=== PATIENT | female | born 1970 | race Caucasian/White ===

== ENCOUNTER 2024-09-22 13:19 | Observation (INO) ==
--- NOTE | 2024-09-22 14:23 | Emergency Department Note ---
Impression & Plan Neurogenic claudication due to lumbar spinal stenosis ED Provider Note CHIEF COMPLAINT: Back pain, leg numbness and tingling HISTORY OF PRESENT ILLNESS: This 53-year-old female patient presents to the emergency department due to severe back pain and leg numbness/tingling. She describes lumbar back pain with bilateral radiation of numbness and tingling into her legs. The patient states that [place] [facility] [place] states that "it is pinching in her spinal cord." She confirms that she is scheduled for decompression tomorrow with Dr. Valencia here at [facility]. The patient denies bowel or bladder incontinence and groin/genital numbness and tingling. The patient denies chest pain, shortness of breath, nausea, vomiting, diarrhea. The patient describes that this is a chronic issue that has been well-managed through her orthopedic care, but today the pain has been much more severe and is not controlled with her current medication regimen. The patient confirms taking 5 mg oxycodone at 7 AM and another at 8 AM without improvement of her symptoms. Originally upon arrival the patient denies needing any pain control in the emergency room at this point and would prefer to wait to hear from Dr. Valencia who is being consulted. About an hour later the patient states that she would now like something for pain control. History provided by: The patient. REVIEW OF SYSTEMS: A 10 system review of systems was performed with positives and pertinent negatives listed in the history of present illness. All other systems were reviewed and are negative. ALLERGIES: See below MEDICATIONS: See below PHYSICAL EXAM: VITALS: Vitals are noted on the nurse's note and reviewed by myself. GENERAL: This is a 53-year-old female, in no acute distress, minor discomfort due to back pain, nondiaphoretic, well-developed well-nourished. SKIN: The skin was without rashes, erythema, edema, or bruising. There is no tenting of the skin. Capillary refill less than 2 seconds. HEAD: Normocephalic atraumatic. EARS: External auditory canals clear, tympanic membranes pearly shah without erythema or effusion bilaterally. No hemotympanum. Negative haywood sign EYES: Pupils equal round and reactive to light and accommodation. Conjunctivae without injection, sclerae without icterus. Extraocular movements intact. NOSE: Patent, turbinates without inflammation or discharge. No sinus tenderness. MOUTH: Mucous membranes moist. Tonsils are not enlarged. Pharynx without erythema or exudate. Uvula midline. Airway patent. Tongue does not deviate. NECK: Supple without nuchal rigidity. No lymphadenopathy. Cervical spine is nontender. No JVD. HEART: Regular rate and rhythm without murmurs gallops or rubs. LUNGS: Clear to auscultation bilaterally without wheezes, rales or rhonchi. No retractions or accessory muscle use. ABDOMEN: Positive bowel sounds x 4. Soft, nontender, without masses or organomegaly. Downs sign negative. No guarding or rebound tenderness. MUSCULOSKELETAL: No muscle atrophy, erythema, or edema noted. Full range of motion without joint tenderness in all extremities. Lumbar back pain with palpation and range of motion. Normal gait. Strength 5/5 throughout. NEURO: Patient was alert and oriented to person place and time. Normal sensation to light and sharp touch. Deep tendon reflexes 2+ throughout. No focal neurological deficits. EMERGENCY DEPARTMENT COURSE: I attest that I have personally reviewed the patient medication list. I attest that I have reviewed the patient's blood pressure and it was found to be 111/53. In the evaluation and treatment of this patient the following differential diagnoses were considered DDX: Differential diagnosis includes cauda equina syndrome, cord compression, disc herniation, muscle spasm, lumbar strain, epidural abscess, malignancy, transverse myelitis, urinary tract infection, colitis, diverticulitis, kidney stone, among others. MEDICAL DECISION MAKING: The patient is a 53-year-old female who presents to the emergency department due to severe back pain and leg numbness and tingling. The patient states that she follows up with [place]. Valencia [place] [facility] [place] is scheduled for a decompression tomorrow. I am currently unable to see the patient's notes and imaging [place] [facility] [place] so I called to consult with Dr. Valencia. While awaiting the consult routine blood work and urinalysis were ordered. Patient's labs were unremarkable. White count was slightly elevated at 11.47, alkaline phosphatase was slightly elevated at 125, and urinalysis was clear showing trace blood and 1+ leukocyte esterase. After reaching out to Dr. Valencia an order for an MRI was placed and admission of the patient was decided by them. I educated the patient on this decision and she was happy to stay. Patient was tearful when she was telling me about the history of her chronic back pain and hopes that the procedure can provide her some relief tomorrow. She will stay overnight for pain management and monitoring prior to procedure. It was a pleasure to be part of Vera's care team today. The chart was completed utilizing [email or web address] Speech voice recognition software. Grammatical errors, random word insertions, pronoun errors, and incomplete sentences are an occasional consequence of this system due to software limitations, ambient noise, and hardware issues. Any formal questions or concerns about the content, text, or information contained within the body of this dictation should be directly addressed to the provider for clarification. Past Med/Surg History Problem List (Updated 09/22/24 @ 17:19 by Maria Del Rosario Beach PA-C) Neurogenic claudication due to lumbar spinal stenosis (Acute) Medical History Carotid stenosis Imaging done by [employer] sheriff detective and patient states "said nothing to worry about, that it was normal for my age" Chronic sinusitis Hx of fracture of patella first part of july 2024 from a fall d/t her back pain and leg numbness. [facility] patient still in a brace and has a f/u 09/17/24. healing well per patient. Chronic back pain Lumbar radiculopathy + LE neuropathy Poor historian Hyperlipidemia GERD (gastroesophageal reflux disease) Anxiety "Severe" Hypertension Fibromyalgia History of staph infection States "carries in her skin" and "gets infection 50% of the time after all surgeries, requiring admission for IV abx" - states it is "not MRSA" No issues in past 8+ (prior to 2016) years per patient Surgical History History of open reduction and internal fixation (ORIF) procedure (08/01/24) [facility] S/P epidural steroid injection multiple Hx of tubal ligation (2002) Hx of partial thyroidectomy (2020) left - benign growth removal Hx of shoulder surgery right x1 - 2014 left x6- 2010 History of ankle surgery (2008) x5 left (4 surgeries due to infection) Hx of foot surgery (2008) left Family History (Updated 09/16/24 @ 10:50 by Lidya Tony RN) Other No family history of adverse response to anesthesia Social History Smoking Status: Never smoker Tobacco Type: Cigarettes Cigarettes Per Day: 1 PPD; Second Hand Exposure: No; Do You Dip or Chew Tobacco: No; Hx Alcohol Use: No Hx Substance Use: No Preferred Language: Portuguese Communication Ability: Effective 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 Beliefs That Will Affect Care: None Current Living Situation: Family Feels Safe at Home: Yes Assistive Devices: Brace/Splint/Immobilizer, Contacts, Crutches, Denture - Upper and Denture - Lower Allergies Allergies Allergy/AdvReac Type Severity Reaction Status Date / Time morphine Allergy Mild Itching Verified 09/22/24 15:47 oyster extract Allergy Mild Unknown Verified 09/22/24 15:47 bee venom protein (honey bee) Allergy Unknown Unknown Verified 09/22/24 15:47 Penicillins AdvReac Vomiting Unverified 09/22/24 15:47 Home Meds Home Medications Medication Instructions Recorded Confirmed aspirin 81 mg capsule 0 mg PO QAM 04/30/24 09/22/24 baclofen 5 mg tablet 5 mg PO TID 04/30/24 09/22/24 duloxetine 60 mg capsule,delayed 60 mg PO QAM 04/30/24 09/22/24 release lisinopril 10 mg tablet 10 mg PO QAM 04/30/24 09/22/24 omeprazole 20 mg capsule,delayed 20 mg PO Q2D 04/30/24 09/22/24 release pregabalin 150 mg capsule 150 mg PO TID 04/30/24 09/22/24 sulindac 150 mg tablet 0 mg PO BID 04/30/24 09/22/24 atorvastatin 40 mg tablet 40 mg PO QAM 09/16/24 09/22/24 multivitamin with minerals-folic 1 tab PO QAM 09/16/24 09/22/24 acid 200 mcg chewable tablet (Women's Multivitamin Gummies) oxycodone 5 mg tablet 5 mg PO QID PRN Pain 09/16/24 09/22/24 trazodone 50 mg tablet 75 mg PO HS PRN Sleep 09/16/24 09/22/24 Results & Data (ED) Vital Signs Vital Signs - 24 hr 09/22/24 13:29 09/22/24 15:27 09/22/24 15:46 Temperature 36.5 C Temperature Source Temporal Artery Scan Pulse Rate 79 75 Pulse Rate [Apical] 65 Pulse Strength [Apical] Normal Respiratory Rate 20 18 Respiratory Effort / Characteristics Non-Labored Spontaneous Non-Labored Spontaneous Respiratory Depth Normal Normal Respiratory Pattern Regular Blood Pressure 112/71 Blood Pressure [Right Arm] 111/53 L Blood Pressure Mean 84 Blood Pressure Mean [Right Arm] 72 Pulse Oximetry 97 98 Oxygen Delivery Method Room Air Room Air Sepsis Recent Fever Within 48 Hours No Sepsis New/Unexplained Change in Mental Status No Sepsis Action Taken by Nursing No Action Required Laboratory Data 09/22/24 14:50 09/22/24 14:50 Lab Results 09/22/24 Range/Units 14:50 WBC 11.47 H (4.8-10.8) K/ul RBC 5.03 (4.20-5.40) M/uL Hgb 14.7 (12.0-16.0) g/dl Hct 43.9 (37.0-47.0) % MCV 87.3 (80.0-100.0) fL MCH 29.2 (25.0-34.0) pg MCHC 33.5 (32.0-36.0) g/dL RDW Std Deviation 41.4 (36.4-46.3) fL RDW Coeff of Mike 13.1 (11.5-14.5) % Plt Count 353 (130-400) K/uL MPV 10.4 (9.4-12.4) fL Immature Gran % (Auto) 0.3 % Neut % (Auto) 72.8 % Lymph % (Auto) 21.5 % Wharton % (Auto) 3.1 % Eos % (Auto) 1.8 % Baso % (Auto) 0.5 % Neut # (Auto) 8.34 H (1.40-6.50) K/uL Lymph # (Auto) 2.47 (1.20-3.40) K/uL Wharton # (Auto) 0.36 (0.11-0.59) K/uL Eos # (Auto) 0.21 (0.00-0.50) K/uL Baso # (Auto) 0.06 (0.00-0.20) K/uL Immature Gran # (Auto) 0.03 (0.01-0.20) K/uL Sodium 138 (136-145) mmol/L Potassium 3.9 (3.5-5.1) mmol/L Chloride 101 (98-107) mmol/L Carbon Dioxide 32 (21-32) mmol/L Anion Gap 5 (3-11) BUN 13 (6-23) mg/dl Creatinine 0.82 (0.6-1.2) mg/dl Est Cr Clr Drug Dosing 94.9 ml/min eGFR 86.55 BUN/Creatinine Ratio 15.9 (10-20) Glucose 80 (70-99(Fasting)) mg/dl Calcium 9.8 (8.6-10.3) mg/dl Total Bilirubin 0.5 (0.2-1.0) mg/dl AST 21 (13-39) U/L ALT 29 (7-52) U/L Alkaline Phosphatase 125 H (34-104) U/L Total Protein 7.8 (6.0-8.3) gm/dl Albumin 5.0 (3.4-5.0) gm/dl Globulin 2.8 (2.5-4.0) gm/dl Albumin/Globulin Ratio 1.8 (0.9-2) Urine Color Yellow Urine Appearance Clear (Clear) Urine pH 6.0 (4.5-7.5) Ur Specific [place] 1.011 (1.000-1.030) Urine Protein Negative (Negative) Urine Glucose (UA) Negative (Negative) Urine Ketones Negative (Negative) Urine Blood Trace H (Negative) Urine Nitrite Negative (Negative) Urine Bilirubin Negative (Negative) Urine Urobilinogen Negative (Negative) Ur Leukocyte Esterase 1+ H (Negative) Urine WBC (Auto) 0-5 (0-5) /hpf Urine RBC (Auto) 0-2 (0-2) /hpf U Hyaline Cast (Auto) 0-2 (0-2) /lpf U Epithel Cells (Auto) 0-2 (0-2) /hpf Urine Bacteria (Auto) None Seen (None Seen) Administered Medications Discontinued Medications Fentanyl Citrate (Fentanyl Citrate Pf 100 Mcg/2 Ml Vial) 50 mcg IV NOW STA Stop: 09/22/24 15:06 Last Admin: 09/22/24 15:25 Dose: 50 mcg Documented By: GGG Ketorolac Tromethamine (Ketorolac Tromethamine 15 Mg/Ml Vial) 15 mg IV NOW STA Stop: 09/22/24 15:06 Last Admin: 09/22/24 15:23 Dose: 15 mg Documented By: IRA Discharge Plan Visit Data Chief Complaint: Back Injury/Pain Stated Complaint: SEVERE BACK PAIN ED Provider: Ngozi Sal ED Midlevel Provider: Maria Del Rosario Beach Discharge Problem: Neurogenic claudication due to lumbar spinal stenosis Patient Disposition: Admitted As Inpatient Discharge Instructions Interventions: ED Discharge Assessment Last Done: 09/22/24 16:31 Prescriptions Prescriptions: No Action sulindac 150 mg Tablet 0 mg PO BID Rx Instructions: USUALLY ON 150 MG BUT IS ON HOLD FOR SURGERY omeprazole 20 mg Capsule,Delayed Release(Dr/Ec) 20 mg PO Q2D duloxetine 60 mg Capsule,Delayed Release(Dr/Ec) 60 mg PO QAM pregabalin 150 mg Capsule 150 mg PO TID baclofen 5 mg Tablet 5 mg PO TID aspirin 81 mg Capsule 0 mg PO QAM Rx Instructions: 81MG ON HOLD FOR SURGERY 09/22 lisinopril 10 mg Tablet 10 mg PO QAM atorvastatin 40 mg Tablet 40 mg PO QAM trazodone 50 mg Tablet 75 mg PO HS PRN (Reason: Sleep) oxycodone 5 mg Tablet 5 mg PO QID PRN (Reason: Pain) multivit with min-folic acid [Women's Multivitamin Gummies] 200 mcg Tablet,Chewable 1 tab PO QAM
[2024-09-22 15:06] LABS: Basophils # (auto) 0.06 K/uL (0.00-0.20); Basophils % (auto) 0.5 %; Eosinophils # (auto) 0.21 K/uL (0.00-0.50); Eosinophils % (auto) 1.8 %; Hematocrit (blood only) 43.9 % (37.0-47.0); Hemoglobin 14.7 g/dl (12.0-16.0); Immature Granulocytes # (auto) 0.03 K/uL (0.01-0.20); Immature Granulocytes % (auto) 0.3 %; Lymphocytes # (auto) 2.47 K/uL (1.20-3.40); Lymphocytes % (auto) 21.5 %; Mean Corpuscular Hemoglobin 29.2 pg (25.0-34.0); Mean Corpuscular Hgb Conc 33.5 g/dL (32.0-36.0); Mean Corpuscular Volume 87.3 fL (80.0-100.0); Mean Platelet Volume 10.4 fL (9.4-12.4); Monocytes # (auto) 0.36 K/uL (0.11-0.59); Monocytes % (auto) 3.1 %; Neutrophils # (auto) 8.34 K/uL (1.40-6.50); Neutrophils % (auto) 72.8 %; Platelet Count 353 K/uL (130-400); RDW Coefficient of Variation 13.1 % (11.5-14.5); RDW Standard Deviation 41.4 fL (36.4-46.3); Red Blood Count 5.03 M/uL (4.20-5.40); White Blood Count 11.47 K/ul (4.8-10.8)
[2024-09-22 15:11] LABS: Appearance Urine Clear (Clear); Bacteria Urine Automated None Seen (None Seen); Bilirubin Urine Negative (Negative); Blood Urine Trace (Negative); Cast Urine Automated 0-2 /lpf (0-2); Color Urine Yellow; Epithelial Cell Urine Auto 0-2 /hpf (0-2); Glucose Urine UA Negative (Negative); Ketones Urine Negative (Negative); Leukocyte Esterase Urine 1+ (Negative); Nitrite Urine Negative (Negative); Protein Urine Negative (Negative); RBC Urine Automated 0-2 /hpf (0-2); Specific Gravity Urine 1.011 (1.000-1.030); Urobilinogen Urine Negative (Negative); WBC Urine Automated 0-5 /hpf (0-5)
--- NOTE | 2024-09-22 15:19 | History & Physical Report ---
Date of Service September 22, 2024 Assessment & Plan (1) Neurogenic claudication due to lumbar spinal stenosis: Plan: Assessment lumbar spinal stenosis with progressive neurologic deficit including loss of urinary control. Plan at this time we will admit the patient to the hospital. I have her undergo an urgent MRI lumbar spine. She does have known spinal stenosis L3-L4 L4-L5. Most likely have to address these areas on an emergent basis pending MRI results. History of Present Illness Chief Complaint: Bilateral leg pain weakness and urinary incontinence Primary Care Provider: Heber Stone MD This is a 53-year-old female well-known to me the presents the emergency room today with steady decline in status of the past few days. She notes bilateral leg pain weakness to the point that she falls. She is noted loss of urinary control. Pain medications provide little to no relief. Allergies Allergy/AdvReac Type Severity Reaction Status Date / Time morphine Allergy Mild Itching Verified 09/16/24 10:43 oyster extract Allergy Mild Unknown Verified 09/16/24 10:43 bee venom protein (honey bee) Allergy Unknown Unknown Verified 09/16/24 10:43 Home Medications Medication Instructions Recorded Confirmed Type aspirin 81 mg capsule 81 mg PO QAM 04/30/24 09/16/24 History baclofen 5 mg tablet 5 mg PO TID 04/30/24 09/16/24 History duloxetine 60 mg capsule,delayed 60 mg PO QAM 04/30/24 09/16/24 History release lisinopril 10 mg tablet 10 mg PO QAM 04/30/24 09/16/24 History omeprazole 20 mg capsule,delayed 20 mg PO Q2D 04/30/24 09/16/24 History release pregabalin 150 mg capsule 150 mg PO TID 04/30/24 09/16/24 History sulindac 150 mg tablet 150 mg PO BID 04/30/24 09/16/24 History atorvastatin 40 mg tablet 40 mg PO QAM 09/16/24 09/16/24 History multivitamin with minerals-folic 1 tab PO QAM 09/16/24 09/16/24 History acid 200 mcg chewable tablet (Women's Multivitamin Gummies) oxycodone 5 mg tablet 5 mg PO QID PRN Pain 09/16/24 09/16/24 History trazodone 50 mg tablet 75 mg PO HS PRN Sleep 09/16/24 09/16/24 History Past Med/Surg History Problem List (Updated 09/22/24 @ 15:18 by Amrit Valencia DO) Neurogenic claudication due to lumbar spinal stenosis Medical History Carotid stenosis Imaging done by [place] conveyor technician and patient states "said nothing to worry about, that it was normal for my age" Chronic sinusitis Hx of fracture of patella first part of july 2024 from a fall d/t her back pain and leg numbness. [facility] patient still in a brace and has a f/u 09/17/24. healing well per patient. Chronic back pain Lumbar radiculopathy + LE neuropathy Poor historian Hyperlipidemia GERD (gastroesophageal reflux disease) Anxiety "Severe" Hypertension Fibromyalgia History of staph infection States "carries in her skin" and "gets infection 50% of the time after all surgeries, requiring admission for IV abx" - states it is "not MRSA" No issues in past 8+ (prior to 2016) years per patient Surgical History History of open reduction and internal fixation (ORIF) procedure (08/01/24) [facility] S/P epidural steroid injection multiple Hx of tubal ligation (2002) Hx of partial thyroidectomy (2020) left - benign growth removal Hx of shoulder surgery right x1 - 2014 left x6- 2010 History of ankle surgery (2008) x5 left (4 surgeries due to infection) Hx of foot surgery (2008) left Family History (Updated 09/16/24 @ 10:50 by Lidya Tony RN) Other No family history of adverse response to anesthesia Social History Smoking Status: Never smoker Tobacco Type: Cigarettes Cigarettes Per Day: 1 PPD; Second Hand Exposure: No; Do You Dip or Chew Tobacco: No; Hx Alcohol Use: No Hx Substance Use: No Preferred Language: Guamanian Communication Ability: Effective Burial Agent Required: No Beliefs That Will Affect Care: None Current Living Situation: Family Feels Safe at Home: Yes Assistive Devices: Brace/Splint/Immobilizer, Contacts, Crutches, Denture - Upper and Denture - Lower Physical Exam Physical Exam: On exam she is currently in bed. She has 4/5 plantarflexion dorsiflexion. She is a brace on the left knee from a patella fracture that she is recovering from. She does have decreased sensation throughout the perineal area and bilateral lower extremities. Deep to reflexes are absent. Results & Data Results & Data Vital Signs (Past 12 Hours) Vital Signs Temp Pulse Resp BP Pulse Ox O2 Del Method 09/22/24 13:29 36.5 C 79 20 112/71 97 Room Air Code Status & VTE Plan VTE Prophylaxis Plan VTE Prophylaxis will be ordered: Yes
[2024-09-22 15:23] LABS: Albumin Globulin Ratio 1.8 (0.9-2); BUN Creatinine Ratio 15.9 (10-20); Bilirubin,Total 0.5 mg/dl (0.2-1.0); Calcium 9.8 mg/dl (8.6-10.3); Creatinine Clr Calc Pharmacy 94.9 ml/min; Globulin 2.8 gm/dl (2.5-4.0); Potassium 3.9 mmol/L (3.5-5.1); Total Protein 7.8 gm/dl (6.0-8.3)
[2024-09-22] MEDS: KETOROLAC TROMETHAMINE 15 MG/ML VIAL IV STA (15:23)
[2024-09-22] MEDS: fentaNYL citrate PF 100 MCG/2 ML VIAL IV STA (15:25)
[2024-09-22] MEDS ORDERED: ONDANSETRON 4 MG OD TAB PO PRN (17:23)
[2024-09-22] MEDS ORDERED: NALOXONE HCL 0.4 MG/1 ML VIAL/CARP IV PRN (17:23)
[2024-09-22] MEDS ORDERED: METOCLOPRAMIDE HCL INJ 5 MG/ML 2 ML VIAL IV PRN (17:23)
[2024-09-22] MEDS ORDERED: traMADol HCL 50 MG TABLET PO PRN (17:23)
[2024-09-22] MEDS ORDERED: LORazepam 0.5 MG TAB PO PRN (17:23)
[2024-09-22] MEDS ORDERED: ONDANSETRON INJ 2 MG/ML 2 ML VIAL IV PRN (17:23)
[2024-09-22] MEDS ORDERED: traZODone HCL 50 MG TAB PO PRN (17:23)
[2024-09-22] MEDS ORDERED: PROMETHAZINE 12.5 MG/50.5 ML BAG IV PRN (17:23)
[2024-09-22] MEDS ORDERED: HYDROmorphone INJ 1 MG/ML SYRINGE IV PRN (17:23)
[2024-09-22] MEDS ORDERED: LORazepam 2 MG/1 ML VIAL IV PRN (17:23)
[2024-09-22] MEDS ORDERED: ACETAMINOPHEN 1,000 MG/100 ML VIAL IV PRN (17:23)
[2024-09-22] MEDS ORDERED: HYDROmorphone INJ 0.5 MG/0.5 ML SYR IV PRN (17:23)
[2024-09-22] MEDS: PANTOprazole 40 MG TAB PO SCH (18:20)
--- NOTE | 2024-09-22 19:38 | Magnetic Resonance Report ---
EXAM: MR lumbar spine wo con CLINICAL HISTORY: PT STATES LOW BACK PAIN. BILATERAL LEG NUMBNESS. THE RIGHT IS WORSE THAN THE LEFT LEG. WORSENED IN LAST YEAR. MORE FREQUENT PAIN AND NUMBNESS. NO INJURY. NO PRIOR SURGERY. NO HX OF CANCER. TECHNIQUE: Different pulse sequences were performed in different planes for the lumbar spine without contrast. Images were sent through PACs for diagnostic interpretation. COMPARISON: None. FINDINGS: Levoconvex degenerative lumbar scoliosis. The Balderrama Lippmann's angle measures 15.6. The scanned intervertebral discs show variable degrees of degeneration, denoted by low signal intensity on T2 WI and a relative reduction in their heights. Marginal osteophytes are seen.Multiple radial, concentric, and transverse annular fissures are seen.Multiple Schmorl's nodes are seen at the vertebral end plates. Modic I and II marrow changes are seen, but no other remarkable marrow changes are present. An associated wide zone of bone marrow edema is seen at the L4 vertebral body, suggesting aseptic/Septic spondylitis. Detailed clinical and laboratory correlation and follow-up are recommended as appropriate. Soft tissue edema is seen opposite the lumbar and sacral vertebrae, suggesting orthostatic edema vs. soft tissue contusion. Degenerative spondylolisthesis is seen at the L3-L4 level, measuring 4 mm, and at the L4-L5 level measuring 4.5 mm. Maintained vertebral heights with intact vertebral bodies and neural arches. Level by Level analysis: T10-T11: There is a 2.8 mm annular bulge indenting the thecal sac, compromising subarticular recesses. There is mild central canal stenosis and mild bilateral neural foraminal stenosis with impingement of the emerging nerve roots. Buckled ligamenta flava augment effects. T 11-T12: There is a 3.2 mm annular bulge indenting the thecal sac, compromising the subarticular recesses. There is mild central canal stenosis and mild bilateral neural foraminal stenosis with impingement of the emerging nerve roots. Buckled ligamenta flava augment effects. T12-L1: There is a 4 mm annular bulge indenting the thecal sac, compromising the subarticular recesses. There is mild central canal stenosis and mild bilateral neural foraminal stenosis more on the left side with impingement of the emerging nerve roots. Buckled ligamenta flava and arthropathic facet joints augment effects. L1-L2: There is a 2.6 mm annular bulge and a 4.6 mm left foraminal herniation indenting the thecal sac, compromising the subarticular recesses more on the left side with moderate left and mild right neural foraminal stenosis with impingement of the emerging nerve roots. Buckled ligamenta flava and arthropathic facet joints augment effects. L2-L3: There are 4.5 mm subarticular herniations compromising subarticular recesses and neural foramina with impingement of the emerging nerve roots. L3-L4: There is a 4 mm degenerative spondylolisthesis and a 4 mm cranial buckling of the intervening disc indenting the thecal sac, compromising the subarticular recesses. There is moderate to severe central canal stenosis and severe right and moderate left neural foraminal stenosis with impingement of the emerging nerve roots. Proximal Engorgement of the epidural veins is seen, representing the consequences of severe tight spinal canal stenosis (Spinal varices). There is a foreshortening of the midsagittal AP dimension of the spinal canal (closed arch type of spondylolisthesis) (diagnostic hallmark). L4-L5: There is a 4.5 mm degenerative spondylolisthesis and a 4.5 mm cranial buckling of the intervening disc indenting the thecal sac, compromising the subarticular recesses. There is moderate to severe central canal stenosis and severe right and moderate left neural foraminal stenosis with impingement of the emerging nerve roots. There is a foreshortening of the midsagittal AP dimension of the spinal canal (closed arch type of spondylolisthesis) (diagnostic hallmark). L5-S1: There is 2.4 mm annular bulge indenting the anterior epidural fat compromising the subarticular recesses and neural foramina with impingement of the emerging nerve roots. Buckled ligamenta flava and arthropathic facet joints augment effects. The lower dorsal spinal cord, conus medullaris, and cauda equina nerve roots are unremarkable. Paravertebral soft tissue is unremarkable. No developmental canal stenosis. IMPRESSION: 1. spondylodegenerative lumbar disc disease. 2. Levoconvex degenerative lumbar scoliosis. The Balderrama Lippmann's angle measures 15.6. 3. Multiple Schmorl's nodes. 4. Multiple annular fissures. 5. Soft tissue edema is seen opposite the lumbar and sacral vertebrae, suggesting orthostatic edema vs. soft tissue contusion. 6. Degenerative spondylolisthesis is seen at the L3-L4 level, measuring 4 mm, and at the L4-L5 level measuring 4.5 mm. 7. Modic I and II marrow changes. 8. An associating wide zone of bone marrow edema is seen at the [id number] body, suggesting aseptic/Septic spondylitis. Detailed clinical, laboratory correlation and follow-up are recommended as appropriate. 9. Soft tissue edema is seen opposite the lumbar and sacral vertebrae, suggesting orthostatic edema vs. soft tissue contusion. 10. T10-T11: There is a 2.8 mm annular bulge. 11. T 11-T12: There is a 3.2 mm annular bulge. 12. T12-L1: There is a 4 mm annular bulge. 13. L1-L2: There is a 2.6 mm annular bulge and a 4.6 mm left foraminal herniation. 14. L2-L3: There are 4.5 mm subarticular herniations compromising subarticular recesses and neural foramina with impingement of the emerging nerve roots. 15. L3-L4: There is a 4 mm degenerative spondylolisthesis and a 4 mm cranial buckling of the intervening disc. 16. L4-L5: There is a 4.5 mm degenerative spondylolisthesis and a 4.5 mm cranial buckling of the intervening disc. 17. L5-S1: There is a 2.4 mm annular bulge. 18. Multilevel lumbar disc pathologies at the T10-T11 through the L5-S1 levels with effects exerted upon the central spinal canal, subarticular recesses, and neural foramina with impingement of the emerging nerve roots. Degenerative spondylolisthesis buckled ligamenta flava and arthropathic facet joints augment effects. 19. The reported findings explain the current clinical status. Electronically signed by Armando Arenas 09-22-2024 7:38 PM
[2024-09-22] MEDS: PREGABALIN 150 MG CAP PO SCH (20:54)
[2024-09-22] MEDS: oxyCODONE HCL IR 5 MG TAB (IMMEDIATE RELEASE) PO PRN (21:14)
[2024-09-23] MEDS: ACETAMINOPHEN 500 MG TAB PO PRN (07:58)
[2024-09-23] MEDS: DULoxetine HCL 60 MG CAP PO SCH (08:00)
[2024-09-23] MEDS: lisinopril 10 MG TAB PO SCH (08:00)
[2024-09-23] MEDS: ATORVASTATIN 40 MG TAB PO SCH (08:00)
--- NOTE | 2024-09-23 08:55 | History & Physical Bridge Note ---
Date of Service September 23, 2024 History & Physical Bridge Note I have examined the patient, reviewed the History & Physical and in the interval since the performance of the History & Physical I have noted the following changes of clinical significance: no changes noted Updated MRI confirms both severe spinal stenosis with foraminal stenosis and instability L3-L4 L4-L5. In light of the patient's progressive neurologic deficit loss of urinary control and recommended emergent decompression and fusion L3-L4 L4-L5.
[2024-09-23] MEDS ORDERED: LIDOCAINE 2% 2 ML VIAL/AMP(20MG/ML) INFIL ONE (10:20)
[2024-09-23] MEDS ORDERED: ROCURONIUM BROMIDE 10 MG/ML 5 ML VIAL IV ONE (10:20)
[2024-09-23] MEDS ORDERED: DEXAMETHASONE SOD INJ 4 MG/ML VIAL ONE (10:20)
[2024-09-23] MEDS ORDERED: PROPOFOL IV EMULSION 10 MG/ML 20 ML VIAL IV ONE (10:20)
[2024-09-23] MEDS ORDERED: fentaNYL citrate PF 100 MCG/2 ML VIAL ONE ×2 (10:20→13:31)
[2024-09-23] MEDS ORDERED: ONDANSETRON INJ 2 MG/ML 2 ML VIAL ONE (10:20)
[2024-09-23] MEDS ORDERED: MIDAZOLAM HCL 1 MG/ML 2ML VIAL ONE (10:21)
[2024-09-23] MEDS: LR 15ML/HR IV SCH (10:41)
[2024-09-23] MEDS ORDERED: Nursing to Pharmacy Communication SCH (10:45)
[2024-09-23] MEDS: ceFAZolin 2000MG 2,000 MG/15 ML SYR IV SCH ×2 (11:45→22:38)
[2024-09-23] MEDS ORDERED: KETAMINE HCL 10MG/ML SYR ONE (12:12)
[2024-09-23] MEDS: BUPIVACAINE/EPINEPHRINE 0.25% 1:200,000 30 ML VIAL ONE (12:13)
[2024-09-23] MEDS ORDERED: ePHEDrine sulfate 50 MG/ML AMP ONE (12:14)
[2024-09-23] MEDS ORDERED: GLYCOPYRROLATE 0.2 MG/ML VIAL ONE (12:34)
[2024-09-23] MEDS: ceFAZolin 330 MG/ML 1 GM VIAL ONE (12:42)
[2024-09-23] MEDS ORDERED: SUGAMMADEX SODIUM 200 MG/2 ML VIAL IV ONE ×2 (13:15→14:13)
[2024-09-23] MEDS: FLOSEAL HEMOSTATIC MATRIX 10ML TOP ONE (13:51)
--- NOTE | 2024-09-23 14:00 | Operative Report ---
Post Operative Report Pre & Post Diagnosis Operation Date: 09/23/24 11:55 Pre-Op Diagnosis: #1 cauda equina syndrome. #2 spondylolisthesis L3-L4 L4-5. #3 spinal stenosis with neurogenic claudication. #4 lumbar spondylosis with radiculopathy Post-Op Diagnosis: Same I identified the patient and participated in the time-out.: Yes Procedure Operation Date: 09/23/24 11:55 Actual Procedures #1 lumbar compression with bilateral medial facetectomies and foraminotomies L2- L3, L3-L4 and L4-5. #2 posterior spinal fusion L3-L5. #3 placed posterior instrumentation L3-L4 L4-5. #4 interbody fusion L3-L4 L4-5. #5 placement Spira 12 x 26 mm x 2 at L3-L4 and 13 x 26 mm x 2 at L4-5. #6 placement locally harvested morselized autograft posterior gutters. #7 placement infuse collagen sponge, with Koros in the posterior lateral gutters and os design interbody space. #8 application of versa wrap of the exposed dura. Surgeon Amrit Valencia, DO Bootmaker Hand Pooja Shook Estimated Blood Loss 250 Findings See Below The patient is 5 foot 6 weighing over 91 kg with a BMI in excess of 32. The patient's body was did contribute to significant technical difficulty with positioning exposure and the procedure itself adding at least 50% increased to the operative time. Specimens None Indications This is a 53-year-old female presents with marked decline in status loss of urinary control severe bilateral leg pain and numbness and here for emergent decompression fusion. Description of Procedure Patient was met with identified informed consent obtained. Patient was then taken to the operative suite underwent and patient placed in a prone position on the Kayode table on top of the Tj frame. All bony promises well-padded eyes inspected to ensure no external pressure placed upon them. This point the lumbar spine was prepped and draped in normal sterile fashion. Sharp dissection with the assistance of Bovie cautery was performed down to and exposing the lamina transverse processes of L3-L4-L5 bilaterally. From a caudal cephalad fashion complete laminectomy of L4 was performed including bilateral medial facetectomies and foraminotomies addressing severe central lateral recess and foraminal stenosis. This was followed by complete laminectomy of L3 again addressing severe central lateral recess and foraminal stenosis. I also performed partial laminectomy of L2 with bilateral medial facetectomies addressing all subarticular disease. Pedicle screws were then placed at L3 L4-5 bilaterally with assistance of fluoroscopy and the properly sized ren placed. By way of transfer approach on the right discectomy of L4-5 was performed endplates grade 2 subcortical bleeding bone and a 13 x 26 mm Spira cage filled with os design bone graft tapped in position. Then proceeded to the transforaminal region at L4-5 on the left. Again discectomy performed endplates guided to subcortical bleeding bone and a second 13 x 26 mm Spira cage filled with os designed tapped into position. I then proceeded at L3-L4 and by way of transforaminal approach a left discectomy was performed endplates guided to subcortical bleeding bone and a 12 x 26 mm Spira cage filled os designed tapped in position. Then proceeded to the right transforaminal region at L3-L4. Again discectomy performed endplates guided to subcortical and bone and a second 12 x 26 mm spiral cage filled with os design tapped into position. The rods are then compressed locked in final position bilaterally. The transverse processes of L3 L4-5 burred to subcortical bleeding bone. Infuse collagen sponge combined with Koros and local autograft placed in the posterior gutters. 15 round CA drain inserted. Versa wrap placed over the exposed dura. Incision was then closed with 1 Vicryl the fascia 2-0 Vicryl subcutaneously and 4 Monocryl for final skin closure. Steri-Strips sterile dressing placed. Patient waken taken PACU stable condition. Please note spinal cord monitoring was utilized for the procedure no changes noted. Lastly Pooja Shook was present at the entire procedure and while the patient positioning complex portions of the surgery and final skin closure. Im ordering 20 grams of Triple [place] Collagen Powder ([id number]) to treat an incision wound that was caused by a spine procedure. The incision is approximately 2 cm(W) x 4 cm(L) into the joint (D) in size and is a full thickness wound. Triple [place] collagen comes in 1 gram packets so 20 packets were ordered. Given the size of the wound, with light to moderate exudate I chose to order a 20 day supply. The patient will be provided instructions for proper application of the collagen wound kit. The patient will be asked to apply the collagen powder daily and then cover it with sterile dressings dispensed. Collagen was selected as I expect the collagen to attract monocytes and fibroblasts, act as a sacrificial substrate for MMPs, and ultimately proved a matrix for tissue and vessel growth. The collagen will act as a primary dressing in this scenario. It is medically necessary for proper healing of these wounds to improve bioavailability and contact with each wound surface, this is also to help prevent infection of wounds and promote healing ultimately leading to a better healing outcome and limit the risk of infection. I attest to the content of the Intraoperative Record and any orders documented therein. Any exceptions are noted below.
[2024-09-23] MEDS ORDERED: ATROPINE SULFATE 0.1 MG/ML 10ML SYR IV PRN (14:46)
[2024-09-23] MEDS ORDERED: ONDANSETRON INJ 2 MG/ML 2 ML VIAL IV PRN ×2 (14:46→18:23)
[2024-09-23] MEDS ORDERED: ePHEDrine sulfate 50 MG/ML AMP IV PRN (14:46)
[2024-09-23] MEDS: fentaNYL citrate PF 100 MCG/2 ML VIAL IV PRN (14:50)
[2024-09-23] MEDS: HYDROmorphone INJ 1 MG/ML SYRINGE IV PRN ×2 (15:06→21:56)
[2024-09-23] MEDS: ASPIRIN 81 MG ECTAB PO SCH (15:25)
[2024-09-23] MEDS ORDERED: PHENYLEPHRINE 100MCG/ML 5ML SYR ONE (16:12)
[2024-09-23 17:23] LABS: Hematocrit (blood only) 34.7 % (37.0-47.0); Hemoglobin 11.6 g/dl (12.0-16.0)
--- NOTE | 2024-09-23 18:13 | Anesthesiology Progress Note ---
Date of Service September 23, 2024 Anesthesia Post Procedure Vital Signs Vital Signs: Temp Pulse Pulse Resp BP Pulse Ox O2 Del Method 09/23/24 18:00 84 16 98/58 L 96 Nasal Cannula 09/23/24 17:50 79 16 104/53 L 92 Nasal Cannula 09/23/24 17:40 75 12 96/36 L 95 Nasal Cannula 09/23/24 17:30 74 12 95/45 L 92 Nasal Cannula 09/23/24 17:20 74 12 89/43 L 95 Nasal Cannula 09/23/24 17:10 71 12 92/41 L 92 Nasal Cannula 09/23/24 17:00 76 12 90/48 L 91 Nasal Cannula 09/23/24 16:35 78 15 98/59 L 91 Nasal Cannula 09/23/24 16:25 77 13 96/46 L 91 Nasal Cannula 09/23/24 16:15 72 11 L 109/52 L 92 Nasal Cannula 09/23/24 16:05 77 15 87/41 L 93 Nasal Cannula 09/23/24 15:55 73 9 L 91/40 L 92 Nasal Cannula 09/23/24 15:45 76 13 83/36 L 92 Nasal Cannula 09/23/24 15:35 78 12 78/48 L 92 Nasal Cannula 09/23/24 15:25 77 10 L 80/43 L 91 Nasal Cannula 09/23/24 15:15 85 13 84/48 L 92 Nasal Cannula 09/23/24 15:05 82 16 85/43 L 94 Nasal Cannula 09/23/24 14:55 83 18 88/41 L 93 Nasal Cannula 09/23/24 14:45 36.7 C 78 13 85/47 L 92 Nasal Cannula 09/23/24 14:35 84 13 84/45 L 98 Nasal Cannula 09/23/24 14:25 91 H 14 83/39 L 98 Nasal Cannula 09/23/24 14:19 36.3 C L 91 H 17 105/54 L 98 Oxymask 09/23/24 10:36 36.9 C 67 20 157/56 H 95 Room Air 09/23/24 10:35 78 15 98/59 L 91 Nasal Cannula 09/23/24 07:18 36.4 C L 69 16 170/80 H 93 Room Air 09/22/24 19:45 36.6 C 69 20 117/70 94 Room Air O2 Flow Rate 09/23/24 18:00 3 09/23/24 17:50 3 09/23/24 17:40 3 09/23/24 17:30 3 09/23/24 17:20 3 09/23/24 17:10 3 09/23/24 17:00 3 09/23/24 16:35 2 09/23/24 16:25 2 09/23/24 16:15 2 09/23/24 16:05 2 09/23/24 15:55 2 09/23/24 15:45 2 09/23/24 15:35 2 09/23/24 15:25 2 09/23/24 15:15 2 09/23/24 15:05 2 09/23/24 14:55 2 09/23/24 14:45 2 09/23/24 14:35 2 09/23/24 14:25 2 09/23/24 14:19 10 09/23/24 10:36 09/23/24 10:35 2 09/23/24 07:18 09/22/24 19:45 Pain Intensity Back: Pain Intensity: 4 Transfer of Care Handoff Completed per policy Notes Mental Status: alert / awake / arousable Patient Amnestic to Procedure: Yes Nausea / Vomiting: adequately controlled Pain: adequately controlled Airway Patency, RR, SpO2: stable & adequate BP & HR: stable & adequate Hydration State: stable & adequate Anesthetic Complications: no major complications apparent
[2024-09-23] MEDS: fentaNYL citrate PF 100 MCG/2 ML VIAL ONE (18:22)
[2024-09-23] MEDS ORDERED: ACETAMINOPHEN 1,000 MG/100 ML VIAL IV PRN (18:23)
[2024-09-23] MEDS ORDERED: diphenhydrAMINE Capsule 25 MG CAP PO PRN (18:23)
[2024-09-23] MEDS ORDERED: FAMOTIDINE 20 MG TAB PO PRN (18:23)
[2024-09-23] MEDS ORDERED: ONDANSETRON 4 MG OD TAB PO PRN (18:23)
[2024-09-23] MEDS ORDERED: MAGNESIUM HYDROXIDE SUSP 30 ML UDC PO PRN (18:23)
[2024-09-23] MEDS ORDERED: PROMETHAZINE 12.5 MG/50.5 ML BAG IV PRN (18:23)
[2024-09-23] MEDS ORDERED: DO NOT ADMINISTER FLU VACCINE PRN (18:23)
[2024-09-23] MEDS ORDERED: hydrOXYzine HCl 25 MG TAB PO PRN (18:23)
[2024-09-23] MEDS ORDERED: METOCLOPRAMIDE HCL INJ 5 MG/ML 2 ML VIAL IV PRN (18:23)
[2024-09-23] MEDS ORDERED: NALOXONE HCL 0.4 MG/1 ML VIAL/CARP IV PRN (18:23)
[2024-09-23] MEDS ORDERED: ALUMINUM/MAGNESIUM SUSP 30 ML UDC PO PRN (18:23)
[2024-09-23] MEDS ORDERED: SOD PHOSPHATE/SOD BIPHOSPHATE ENEMA 132 ML BTL PR PRN (18:23)
[2024-09-23] MEDS ORDERED: LORazepam 2 MG/1 ML VIAL IV PRN (18:23)
[2024-09-23] MEDS ORDERED: DO NOT ADMINISTER PNEUMOCOCCAL VACCINE PRN (18:23)
[2024-09-23] MEDS ORDERED: bisacodyL 10 MG SUPP PR PRN (18:23)
[2024-09-23] MEDS: dexAMETHasone 6 MG in SYRINGE 0 ML IV SCH (19:41)
[2024-09-23] MEDS: SULINDAC 150 MG TAB PO SCH (19:58)
[2024-09-23] MEDS: oxyCODONE HCL IR 5 MG TAB (IMMEDIATE RELEASE) PO PRN (19:59)
[2024-09-23] MEDS: SENNA 8.6 MG TAB PO ONE (20:05)
[2024-09-23] MEDS: DOCUSATE SODIUM/SENNA 50/8.6MG TAB PO SCH (22:05)
[2024-09-24] MEDS: LORazepam 0.5 MG TAB PO PRN (02:48)
[2024-09-24 04:31] LABS: Hematocrit (blood only) 32.7 % (37.0-47.0); Mean Corpuscular Hemoglobin 29.8 pg (25.0-34.0); Mean Corpuscular Hgb Conc 33.6 g/dL (32.0-36.0); Mean Corpuscular Volume 88.6 fL (80.0-100.0); Mean Platelet Volume 10.9 fL (9.4-12.4); Platelet Count 290 K/uL (130-400); RDW Coefficient of Variation 13.2 % (11.5-14.5); RDW Standard Deviation 42.9 fL (36.4-46.3); Red Blood Count 3.69 M/uL (4.20-5.40); White Blood Count 15.54 K/ul (4.8-10.8)
[2024-09-24 04:50] LABS: BUN Creatinine Ratio 22.6 (10-20); Calcium 8.7 mg/dl (8.6-10.3); Creatinine Clr Calc Pharmacy 81.5 ml/min; Potassium 4.6 mmol/L (3.5-5.1)
[2024-09-24 04:58] LABS: Basophils # (auto) 0.02 K/uL (0.00-0.20); Basophils % (auto) 0.1 %; Immature Granulocytes # (auto) 0.08 K/uL (0.01-0.20); Immature Granulocytes % (auto) 0.5 %; Lymphocytes % (auto) 5.1 %; Monocytes # (auto) 0.25 K/uL (0.11-0.59); Monocytes % (auto) 1.6 %; Neutrophils # (auto) 14.39 K/uL (1.40-6.50); Neutrophils % (auto) 92.7 %; Polychromasia 1+
[2024-09-24] MEDS: POLYETHYLENE (MIRALAX) 17 GM PACK PO SCH (05:25)
[2024-09-24] MEDS: traMADol HCL 50 MG TABLET PO PRN (07:39)
[2024-09-24] MEDS: CEROVITE ADV FORMULA TAB PO SCH (07:59)
[2024-09-24] MEDS: ACETAMINOPHEN 500 MG TAB PO PRN (10:17)
--- NOTE | 2024-09-24 11:02 | Orthopedic Progress Note ---
Date of Service September 24, 2024 Assessment & Plan (1) Neurogenic claudication due to lumbar spinal stenosis: Plan: At this time initiate physical therapy monitor CA output anticipate discharge home the next few days. Admission and Anticipated Discharge Date Admission Date: September 22, 2024 Subjective Back pain is controlled. Leg pain and numbness are markedly improved. Her Alvarez is out and she is urination much improved. Physical Exam Physical Exam: Patient is able to sit up on her own without difficulty. Good strength testing lower extremities. Results & Data Vital Signs (Past 12 Hours) Vital Signs Temp Pulse Resp BP Pulse Ox O2 Del Method 09/24/24 07:57 36.8 C 69 17 115/67 95 Room Air 09/24/24 02:30 36.8 C 71 18 111/59 L 94 Room Air Queries Orthopedic Spine Obesity: Yes
[2024-09-24] MEDS ORDERED: CYCLOBENZAPRINE HCL 10 MG TAB PO PRN (11:03)
[2024-09-24] MEDS: oxyCODONE HCL IR 5 MG TAB (IMMEDIATE RELEASE) PO PRN (17:32)
[2024-09-24] MEDS: HYDROmorphone INJ 0.5 MG/0.5 ML SYR IV PRN (21:02)
--- NOTE | 2024-09-25 09:01 | Discharge Summary ---
Date of Service September 25, 2024 Admission HPI Per Admitting Provider This is a 53-year-old female well-known to me the presents the emergency room today with steady decline in status of the past few days. She notes bilateral leg pain weakness to the point that she falls. She is noted loss of urinary control. Pain medications provide little to no relief. Admission Exam (Per Admitting) Constitutional WD/WN, vitals as above Eyes normal visual harrell by confrontation ENMT external ear and nose normal, oropharynx normal Neck trachea midline, no thyromegaly Respiratory normal respiratory effort Cardiovascular Extremities: normal capillary refill Gastrointestinal (Abdomen) Inspection/Auscultation: abdomen normal to inspection Musculoskeletal Extremities: extremities normal to inspection and strength 5/5 throughout Skin no rashes, warm and dry Neurologic normal touch/pain/proprioception and moves all extremities Psychiatric A+Ox3, euthymic affect Discharge Data Consultations 09/22/24 15:56 ED Decision to Admit Stat Procedures Performed Operation Date: 09/23/24 11:55 Actual Procedures p L3-L5 Decompression and Fusion, Spinal Cord Monitoring - Amrit Valencia DO Hospital Course (1) Neurogenic claudication due to lumbar spinal stenosis: Vera is being discharged home on postoperative day 2 status post decompression and fusion L3-5. Pain is under better control. She is up and ambulatory 150 feet in physical therapy yesterday. She has had a bowel movement. No other complaints Discharge Instructions ACTIVITY RECOMMENDATIONS: SELF CARE INSTRUCTIONS AFTER THORACIC/LUMBAR FUSIONS 1. You may walk to your tolerance. It is good exercise for your legs and back. Expect some back and intermittent leg aches and pains. 2. You may perform "counter-top" level activities (make a sandwich, trevin with a project, etc.). 3. No bending or lifting of more than 10 pounds or back twisting of any nature (roll like a log when turning in bed). 4. You may ride in a car for 20-30 minutes at a time. No driving until after your first visit with your doctor. 5. Frequent changes of position and restricting sitting to 30 minutes at a time will help limit the amount of back spasms and stiffness you may experience. 6. You may discontinue the use of ambulatory aids (cane, crutches, etc.) once your strength and confidence allow. 7. You may blasting coal miner the shower and let water strike your incision when you arrive home at least once daily. Do not take a tub bath, sit in a hot tub or go into a swimming pool until after your first recheck in the office. 8. You may resume previous diet. SPECIAL CARE INSTRUCTIONS: VERY IMPORTANT TO READ AND REVIEW A. Your surgical incision has been closed with a cosmetic suture under the skin that will dissolve in about 6 weeks. In 14 days, you can use a pair of clean scissors and cut the suture that is left outside of the skin at the ends of your incision. 1. The small skin tapes can be removed 7 days after surgery if they have not fallen off by that point. 2. You may keep the wound open to air as much as possible to promote healing after post-op day number 5 unless told otherwise by your doctor. 3. If you think the wound looks like it is becoming infected (redness or worsening drainage) and/or you are experiencing fever, chill or worsening back pain and muscle spasms, contact the office so that we may evaluate you as soon as possible. B. Complications are uncommon, but please contact us if you have any signs or symptoms of: 1. wound infection (fever higher than 102.5 degrees F, redness, separation of wound, drainage, or increasing pain from the incision) 2. blood clots in legs (pain, swelling, redness and warmth in legs) 3. urinary tract infection (fever higher than 102.5 degrees F, burning upon urination or increased frequency of urination) 4. nerve problems (inability to walk on your toes or heels, numbness, loss of bowel or bladder control) 5. any other symptoms that concern you C. Please call the office at if you have any concerns or questions about your operation or recovery. D. No smoking! Smoking drastically decreases the chance of a solid fusion. E. Do not take any anti-inflammatory medications (Indocin, Advil, Motrin, Aspirin, Naprosyn, etc.) as these may inhibit the chance of a solid fusion. Tylenol is okay to take for pain. MANAGING PAIN AFTER SPINAL SURGERY 1. Narcotic medication is intended for short-term use and will be provided for surgical pain. Surgical pain usually lasts for a period of 4-6 weeks. Narcotic medication includes Percocet, Vicodin, Darvocet, Tylenol #3 or Lortab. 2. Longer-term pain is more appropriately treated with non-narcotic medication such as Tylenol ES. 3. Muscle spasm is not appropriately treated with narcotics. Muscle relaxers such as Soma, Flexeril or Skelaxin can be used along with Tylenol ES. 4. Remember that we all live with some "aches and pains". This is not unusual or uncommon after an injury or as we get older. a. Back pain is expected and may include muscle spasms for 4 to 6 weeks afte r surgery. The pain should gradually improve. If the pain worsens for no apparent reason, please contact the office. b. Intermittent leg pain may also be experienced and should not be concerned about unless it worsens for no apparent reason. If so, please contact the office. 5. We will provide appropriate medication within the normal guidelines of their prescribed use. We will also be very cautious and aware of potential abuse and extended duration of patients' medication needs. a. Pain medications are for your comfort and to assist with sleep and rest so that the tissue can heal. They are not provided in order to return to normal activity and should not be used through the day. To do so or worsening pain at night can result from ongoing tissue damage and development of tolerance to the prescribed medicine. 6. Please allow 2-3 days to process refills. Prescriptions will not be mailed but must be picked up at the office. FOLLOW UP VISIT: Keep your scheduled follow-up appointment. Any questions, please call the office at .
== END 2024-09-25 13:40 | disposition home or self-care (01) ==
LOC: ED 13:19 → 3W 15:16 → INTOOBSV 15:16 → 3W 16:31